=== PATIENT | male | born 1990 | race African-American/Black ===

== ENCOUNTER 2017-01-02 09:30 | Emergency (ER) | payer OTHER ==
[2017-01-02 09:41] VITALS: RESP 18; TEMP 98.6
--- NOTE | 2017-01-02 09:59 | ED ---
General Adult HPI - General Chief complaint: Dental/Oral Stated complaint: dental pain Time Seen by Provider: 01/02/17 09:44 Source: patient, RN notes reviewed Mode of arrival: ambulatory Limitations: no limitations - History of Present Illness Initial comments: Patient 26-year-old male who presents emergency room today with a chief complaint of a increased dental infection. He does admit that he has a broken tooth of tooth #29. He states that over the last few days he started to feel increased pain. He denies any drainage or discharge. He denies any other complaints or associated symptoms. Patient denies any recent fever, chills, shortness of breath, chest pain, back pain, abdominal pain, nausea or vomiting, numbness or tingling, dysuria or hematuria, constipation or diarrhea, headaches or visual changes, or any other complaints. - Related Data Home Medications Medication Instructions Recorded Confirmed Albuterol Nebulized [Ventolin 2.5 mg INHALATION Q6H 06/28/14 06/28/14 Nebulized] Previous Rx's Medication Instructions Recorded Albuterol Inhaler [Ventolin Hfa 2 puff INHALATION Q6HR PRN #1 06/28/14 Inhaler] inhaler Albuterol Nebulized [Ventolin 2.5 mg INHALATION Q6H #120 nebu 06/28/14 Nebulized] Azithromycin [Zithromax Z-pack] 250 mg PO DIRECTED #6 tab 06/28/14 predniSONE 20 mg PO BID #10 tab 06/28/14 Acetaminophen-Codeine 300-30mg 1 each PO Q6H PRN #10 tablet 01/02/17 [Tylenol #3] Ibuprofen [Motrin] 600 mg PO Q6HR PRN #30 day 01/02/17 Penicillin V Potassium [Pen Vee K] 500 mg PO QID 10 Days 01/02/17 Allergies Allergy/AdvReac Type Severity Reaction Status Date / Time No Known Allergies Allergy Verified 06/28/14 13:10 Review of Systems ROS Statement: Those systems with pertinent positive or pertinent negative responses have been documented in the HPI. ROS Other: All systems not noted in ROS Statement are negative. Past Medical History Past Medical History: Asthma History of Any Multi-Drug Resistant Organisms: None Reported Past Surgical History: No Surgical Hx Reported Past Psychological History: No Psychological Hx Reported Smoking Status: Former smoker Past Alcohol Use History: None Reported Past Drug Use History: None Reported General Exam - General Exam Comments Initial Comments: General: The patient is awake and alert, in no distress, and does not appear acutely ill. Eye: Pupils are equal, round and reactive to light, extra-ocular movements are intact. No nystagmus. There is normal conjunctiva bilaterally. No signs of icterus. Ears, nose, mouth and throat: There are moist mucous membranes and no oral lesions. Patient does have a fractured tooth at tooth #29. He is locally tender in this area. There is no sign of an abscess to the gumline. Uvula midline. Patient swallows without any difficulty. Neck: The neck is supple, there is no tenderness or JVD. Cardiovascular: There is a regular rate and rhythm. No murmur, rub or gallop is appreciated. Respiratory: Lungs are clear to auscultation, respirations are non-labored, breath sounds are equal. No wheezes, stridor, rales, or rhonchi. Musculoskeletal: Normal ROM, no tenderness. Strength 5/5. Sensation intact. Pulses equal bilaterally 2+. Neurological: A&O x 3. CN II-XII intact, There are no obvious motor or sensory deficits. Coordination appears grossly intact. Speech is normal. Skin: Skin is warm and dry and no rashes or lesions are noted. Psychiatric: Cooperative, appropriate mood & affect, normal judgment. Limitations: no limitations Course Vital Signs 01/02/17 09:39 Temperature 98.6 F Pulse Rate 72 Respiratory 18 Rate Blood Pressure 161/104 O2 Sat by Pulse 99 Oximetry Medical Decision Making - Medical Decision Making Patient will be started on antibiotics to cover for a dental abscess. Patient will also be given short prescription of pain medication. He is advised to follow-up dentist this coming week. Disposition Clinical Impression: Pain, dental Disposition: HOME SELF-CARE Condition: Good Instructions: Dental Abscess (ED) Additional Instructions: Please follow-up with dentist and use antibiotic and pain medication as discussed. [facility] [place] [id number] [employer] [facility], [place] [address] [phone]) (existing clients only) For new clients: [phone] [facility] Pay $50 for x-rays and the rest discovered [phone] Prescriptions: Acetaminophen-Codeine 300-30mg [Tylenol #3] 1 each PO Q6H PRN #10 tablet PRN Reason: Pain Ibuprofen [Motrin] 600 mg PO Q6HR PRN #30 day PRN Reason: Pain Penicillin V Potassium [Pen Vee K] 500 mg PO QID 10 Days Referrals: Jose David Lizarraga MD [Primary Care Provider] - 1-2 days Time of Disposition: 10:00
[2017-01-02 10:08] VITALS: BP 145/68; PULSE 76
== END 2017-01-02 10:07 | disposition home or self-care (01) ==
LOC: EC 09:30
DX: K04.7 Periapical abscess without sinus (principal); S02.5XXA Fracture of tooth (traumatic), initial encounter for closed fracture; J45.909 Unspecified asthma, uncomplicated; Z87.891 Personal history of nicotine dependence; Z79.899 Other long term (current) drug therapy; X58.XXXA Exposure to other specified factors, initial encounter
CPT/HCPCS: 99282